=== PATIENT | female | born 1965 | race Caucasian/White ===

== ENCOUNTER 2020-11-01 19:49 | Emergency (ER) | payer OTHER ==
[~2020-11-01] VITALS: Ht 160 cm; Wt 76.7 kg
[2020-11-01 20:14] VITALS: BP 128/77
[2020-11-01] MEDS ORDERED: AMOX500T2 PO (20:36)
[2020-11-01] MEDS ORDERED: HYDR-4303 PO (20:36)
[2020-11-01] MEDS ORDERED: ONDA4TAB11 PO (20:36)
== END 2020-11-01 20:43 | disposition home or self-care (01) ==
LOC: ER 19:53
DX: K08.89 Other specified disorders of teeth and supporting structures (principal); Z98.890 Other specified postprocedural states